=== PATIENT | male | born 1990 | race Caucasian/White ===

== ENCOUNTER → 2020-04-28 | Outpatient (CLI) | payer OTHER ==
--- NOTE | 2020-04-28 14:26 | REP ---
INDICATION: ELEVATED TSH PAIN INTERIOR THYROID GLAND COMPARISON: None. TECHNIQUE: Cardoso scale and color evaluation of the thyroid gland using the linear high frequency transducer. FINDINGS: The thyroid gland is normal in contour, shape, size, and echogenicity. No nodule/mass or cystic abnormalities are appreciated. Right thyroid lobe measures 3.3 x 1.3 x 1.4 cm. Isthmus measures 3.5 mm in width. Left thyroid lobe measures 3.4 x 1.5 x 1.3 cm. IMPRESSION: Normal thyroid ultrasound. <Electronically signed by Xavier Mg > 04/28/20 [id number]
== END ==
LOC: M RAD 13:09
PROVIDERS: ATTEND Physician Assistant
DX: R07.0 Pain in throat (principal)

== ENCOUNTER → 2021-03-25 | Outpatient (CLI) | payer OTHER ==
--- NOTE | 2021-03-25 14:33 | REPVR ---
PROCEDURE INFORMATION: Exam: MR Cervical Spine Without Contrast Exam date and time: 03/25/2021 10:54 AM Age: 30 years old Clinical indication: Pain; Cervicalgia; Additional info: Back pain TECHNIQUE: Imaging protocol: Multiplanar magnetic resonance images of the cervical spine without contrast. COMPARISON: Thyroid, ST head+neck US 04/28/2020 1:22 PM FINDINGS: Vertebrae: Unremarkable. Spinal cord: Normal signal. No cord compression. C2-C3: No significant disc disease. No significant spinal stenosis. C3-C4: No significant disc disease. No significant spinal stenosis. C4-C5: No significant disc disease. No significant spinal stenosis. C5-C6: There is a small central disc protrusion. C6-C7: No significant disc disease. No significant spinal stenosis. C7-T1: No significant disc disease. No significant spinal stenosis. Soft tissues: Unremarkable. IMPRESSION: Small central disc herniation at C5/6. There is no significant spinal canal stenosis or cervical cord impression. Electronically signed by: Sharif Ayala On 03/25/2021 14:32:45 PM
--- NOTE | 2021-03-25 14:35 | REPVR ---
PROCEDURE INFORMATION: Exam: MR Thoracic Spine Without Contrast Exam date and time: 03/25/2021 10:54 AM Age: 30 years old Clinical indication: Pain in thoracic spine. TECHNIQUE: Imaging protocol: Multiplanar magnetic resonance images of the thoracic spine without contrast. COMPARISON: MRI-Spine,Cervical without con 03/25/2021 9:13 AM FINDINGS: Vertebrae: Unremarkable. Spinal cord: Normal signal. No cord compression. Discs/Spinal canal/Neural foramina: No significant disc disease. No significant spinal canal stenosis. Soft tissues: Unremarkable. IMPRESSION: Unremarkable spine. Electronically signed by: Sharif Ayala On 03/25/2021 14:35:20 PM
--- NOTE | 2021-03-25 14:38 | REPVR ---
PROCEDURE INFORMATION: Exam: MR Lumbar Spine Without Contrast Exam date and time: 03/25/2021 10:54 AM Age: 30 years old Clinical indication: Low back pain TECHNIQUE: Imaging protocol: Multiplanar magnetic resonance images of the lumbar spine without intravenous contrast. COMPARISON: MRI-Spine,Thoracic without con 03/25/2021 9:37 AM FINDINGS: Vertebrae: Unremarkable. Spinal cord: Normal signal. No cord compression. L1-L2: No significant disc disease. No significant spinal canal stenosis. No neural foraminal stenosis. L2-L3: No significant disc disease. No significant spinal canal stenosis. No neural foraminal stenosis. L3-L4: No significant disc disease. No significant spinal canal stenosis. No neural foraminal stenosis. L4-L5: No significant disc disease. No significant spinal canal stenosis. No neural foraminal stenosis. L5-S1: There is disc space narrowing and desiccation. There are moderate degenerative end plate changes at this level. There is a moderate disc bulge with a small superimposed central disc herniation. Disc bulging extends into both neural foramen causing mild bilateral neural foraminal narrowing. Soft tissues: Unremarkable. IMPRESSION: Moderate degenerative disc changes at L5/S1. Please see details above. Electronically signed by: Sharif Ayala On 03/25/2021 14:37:33 PM
== END ==
LOC: M RAD 08:52
PROVIDERS: ATTEND Physician Assistant
DX: M51.16 Intervertebral disc disorders with radiculopathy, lumbar region (principal)

== ENCOUNTER 2021-07-10 20:27 | Observation (INO) | payer OTHER ==
[~2021-07-10] VITALS: Ht 175.3 cm; Wt 78.2 kg
[2021-07-10] MEDS ORDERED: NS 1,000 ML IV ONE ×3 (21:00→23:50)
[2021-07-10] MEDS ORDERED: VALA500T5 (21:06)
[2021-07-10] MEDS ORDERED: FLUO20CA22 (21:06)
[2021-07-10] MEDS ORDERED: SPIR100T3 (21:06)
[2021-07-10] MEDS ORDERED: PROG1CAP9 (21:06)
[2021-07-10] MEDS ORDERED: PRAZ1CAP (21:06)
[2021-07-10] MEDS ORDERED: FENO48TA8 (21:06)
[2021-07-10] MEDS ORDERED: ESTR2TAB3 (21:06)
[2021-07-10 21:35] LABS: AMPHETAMINES LEVEL URINE NEGATIVE (NEGATIVE); BARBITURATES URINE NEGATIVE (NEGATIVE); BASO # 0.1 10^3/uL (0.0-0.2); BASO % 0.8 % (0.0-1.0); BENZODIAZEPINES URINE NEGATIVE (NEGATIVE); CANNABINOIDS URINE POSITIVE (NEGATIVE); COCAINE METABOLITE URINE NEGATIVE (NEGATIVE); EOS # 0.1 10^3/uL (0.0-0.5); EOS % 1.1 % (0.0-3.0); HEMATOCRIT 43.2 % (36.0-47.0); HEMOGLOBIN 14.6 g/dl (12.0-15.5); LYMPH # 3.7 10^3/uL (1.5-5.0); LYMPH % 35.3 % (24.0-44.0); MEAN CORPUSCULAR HEMOGLOBIN 30.9 pg (27.0-33.0); MEAN CORPUSCULAR HGB CONC 33.8 g/dl (32.0-36.5); MEAN CORPUSCULAR VOLUME 91.5 fl (80.0-96.0); METHADONE URINE NEGATIVE (NEGATIVE); MONO # 0.7 10^3/uL (0.0-0.8); MONO % 6.8 % (2.0-8.0); NEUTROPHILS # 5.8 10^3/uL (1.5-8.5); NEUTROPHILS % 55.6 % (36.0-66.0); OPIATES URINE NEGATIVE (NEGATIVE); PHENCYCLIDINE URINE NEGATIVE (NEGATIVE); PLATELET COUNT, AUTOMATED 357 10^3/uL (150-450); RED BLOOD COUNT 4.72 10^6/uL (4.00-5.40); WHITE BLOOD COUNT 10.4 10^3/uL (4.0-10.0)
[2021-07-10 21:57] LABS: ALBUMIN 3.9 GM/DL (3.2-5.2); ALT/SGPT 30 U/L (12-78); BILIRUBIN,DIRECT < 0.1 MG/DL (0.0-0.2); BILIRUBIN,TOTAL 0.2 MG/DL (0.2-1.0); BLOOD UREA NITROGEN 13 MG/DL (7-18); CALCIUM LEVEL 9.2 MG/DL (8.5-10.1); CARBON DIOXIDE LEVEL 21 MEQ/L (21-32); CHLORIDE LEVEL 107 MEQ/L (98-107); GLOMERULAR FILTRATION RATE > 60.0 (>60); GLUCOSE, FASTING 141 MG/DL (70-100); POTASSIUM SERUM 3.6 MEQ/L (3.5-5.1); SALICYLATE LEVEL < 1.7 MG/DL (5.0-30.0); SODIUM LEVEL 140 MEQ/L (136-145); THYROID STIMULATING HORMONE 0.943 uIU/ML (0.358-3.740); TOTAL PROTEIN 7.7 GM/DL (6.4-8.2)
[2021-07-10 21:58] LABS: ACETAMINOPHEN LEVEL < 2.0 UG/ML (10.0-30.0); ETHYL ALCOHOL (ETHANOL) < 0.003 % (0.000-0.010)
[2021-07-10 22:01] LABS: RSV AMPLIFICATION NEGATIVE (NEGATIVE)
[2021-07-10 23:37] LABS: ABG BASE EXCESS -3.9 (-2.0-2.0); ABG HCO3 20.9 MEQ/L (22.0-26.0); ABG O2 SATURATION 95.8 % (95.0-99.0); ABG PARTIAL PRESSURE CO2 37.3 mmHg (35.0-45.0); ABG PARTIAL PRESSURE O2 83.1 mmHg (75.0-100.0); ABG STANDARD HCO3 21.2 MEQ/L (22.0-26.0); ABG pH (ARTERIAL) 7.366 UNITS (7.350-7.450)
[2021-07-11] MEDS ORDERED: NS 1,000 ML IV ONE (04:00)
[2021-07-11] MEDS ORDERED: EMTR1TAB16 PO (05:18)
[2021-07-11] MEDS ORDERED: ESTR2TAB3 PO (05:18)
[2021-07-11] MEDS ORDERED: PROG1CAP9 PO (05:18)
[2021-07-11] MEDS ORDERED: SPIR100T3 PO (05:18)
[2021-07-11] MEDS ORDERED: FENO48TA8 PO (05:18)
[2021-07-11] MEDS ORDERED: D3 S1CAP PO (05:18)
[2021-07-11] MEDS ORDERED: FLUO20CA22 PO (05:18)
[2021-07-11] MEDS ORDERED: PRAZ1CAP PO (05:18)
[2021-07-11] MEDS ORDERED: VALT500T PO (05:18)
[2021-07-11] MEDS ORDERED: HOME MED LIST COMPLETE! XX SCH (05:20)
[2021-07-11] MEDS ORDERED: PRAZOSIN 1 MG CAP PO PRN (05:50)
[2021-07-11] MEDS: NS 1,000 ML IV SCH ×2 (07:18→08:58)
[2021-07-11 08:18] VITALS: BP 111/70
[2021-07-11] MEDS ORDERED: FENOFIBRATE 48MG TABLET (TRICOR) PO SCH (09:00)
[2021-07-11] MEDS ORDERED: estradioL 1 MG TAB PO SCH (09:00)
[2021-07-11] MEDS ORDERED: FLUoxetine 20 MG CAP PO SCH (21:00)
[2021-07-11] MEDS ORDERED: TRUVADA 200MG/300MG TABLET PO SCH (21:00)
[2021-07-11] MEDS ORDERED: SPIRONOLACTONE 50 MG TAB PO SCH (21:00)
[2021-07-11] MEDS ORDERED: valACYclovir HCL 500 MG TAB PO SCH (21:00)
[2021-07-12] MEDS ORDERED: INFLUENZA QUADRIVALENT PF VACCINE 0.5ML SYRINGE IM SCH (09:00)
== END 2021-07-11 09:47 | disposition home or self-care (01) ==
LOC: M ED 20:27 → M ED INP 07-11 06:42
PROVIDERS: ADMIT Family Medicine; ATTEND Family Medicine
DX: G92.9 Unspecified toxic encephalopathy (principal); T40.711A Poisoning by cannabis, accidental (unintentional), initial encounter; E87.2 Acidosis; B00.9 Herpesviral infection, unspecified; F64.0 Transsexualism; E78.1 Pure hyperglyceridemia; F32.9 Major depressive disorder, single episode, unspecified; F43.10 Post-traumatic stress disorder, unspecified; F51.5 Nightmare disorder; Z79.899 Other long term (current) drug therapy; Z79.890 Hormone replacement therapy; Z98.84 Bariatric surgery status

== ENCOUNTER → 2021-12-06 | Outpatient (CLI) | payer OTHER ==
[~2021-12-06] MED LIST: D3 S1CAP PO; EMTR1TAB16 PO; ESTR2TAB3; ESTR2TAB3 PO; FENO48TA8; FENO48TA8 PO; FLUO20CA22; FLUO20CA22 PO; PRAZ1CAP; PRAZ1CAP PO; PROG1CAP9; PROG1CAP9 PO; SPIR100T3; SPIR100T3 PO; VALA500T5; VALT500T PO
== END ==
LOC: M PAIN 13:00
PROVIDERS: ATTEND Nurse Practitioner Family
DX: M51.16 Intervertebral disc disorders with radiculopathy, lumbar region (principal); F90.9 Attention-deficit hyperactivity disorder, unspecified type; Z98.84 Bariatric surgery status; F43.10 Post-traumatic stress disorder, unspecified; F32.9 Major depressive disorder, single episode, unspecified; M54.2 Cervicalgia; F64.9 Gender identity disorder, unspecified; Z79.899 Other long term (current) drug therapy; Z87.891 Personal history of nicotine dependence

== ENCOUNTER 2022-03-02 00:24 | Emergency (ER) | payer OTHER ==
[~2022-03-02] VITALS: Ht 175.3 cm; Wt 77.7 kg
[2022-03-02] MEDS ORDERED: ACETAMINOPHEN 325 MG TAB PO ONE (06:45)
[2022-03-02 07:00] LABS: APPEARANCE, URINE MANUAL CLEAR (CLEAR); COLOR, URINE MANUAL YELLOW (YELLOW); PROTEIN, URINE MANUAL NEGATIVE (NEGATIVE); SPECIFIC GRAVITY,URINE MANUAL 1.024 (1.002-1.035)
[2022-03-02 07:01] LABS: BILIRUBIN, URINE MANUAL 1+ (NEGATIVE); BLOOD URINE MANUAL NEGATIVE (NEGATIVE); GLUCOSE, URINE (UA) MANUAL NEGATIVE (NEGATIVE); KETONE, URINE MANUAL 1+ mg/dL (NEGATIVE); LEUKOCYTE ESTERASE, URINE MAN NEGATIVE (NEGATIVE); NITRITE, URINE MANUAL NEGATIVE (NEGATIVE); UROBILINOGEN, URINE MANUAL 8 MG mg/dl (NORMAL)
[2022-03-02 07:55] LABS: RSV AMPLIFICATION NEGATIVE (NEGATIVE)
[2022-03-02 08:25] VITALS: BP 114/60
== END 2022-03-02 08:31 | disposition home or self-care (01) ==
LOC: EDSEX 00:24 → M ED 00:24
DX: U07.1 COVID-19 (principal); M54.50 Low back pain, unspecified; J45.909 Unspecified asthma, uncomplicated; F32.A Depression, unspecified; F41.9 Anxiety disorder, unspecified; F43.10 Post-traumatic stress disorder, unspecified; Z98.84 Bariatric surgery status; Z79.899 Other long term (current) drug therapy; Z79.890 Hormone replacement therapy; F17.200 Nicotine dependence, unspecified, uncomplicated

== ENCOUNTER → 2022-05-14 | Outpatient (CLI) | payer OTHER | LOC: M LABSMTC 11:09 | PROVIDERS: ATTEND Anesthesiology | DX: Z01.812 Encounter for preprocedural laboratory examination (principal); Z11.52 Encounter for screening for COVID-19 ==

== ENCOUNTER → 2022-10-18 | Outpatient (CLI) | payer OTHER | LOC: M PLARAD 13:06 → EDSEX 13:30 | PROVIDERS: ATTEND Physician Assistant | DX: M51.86 Other intervertebral disc disorders, lumbar region (principal) ==

== ENCOUNTER → 2022-10-22 | Outpatient (CLI) | payer OTHER | LOC: M PAIN 14:45 | PROVIDERS: ATTEND Nurse Practitioner Family | DX: M51.16 Intervertebral disc disorders with radiculopathy, lumbar region (principal); M54.2 Cervicalgia; Z87.891 Personal history of nicotine dependence; Z79.899 Other long term (current) drug therapy ==

== ENCOUNTER → 2022-11-14 | Outpatient (CLI) | payer OTHER | LOC: M PAIN 09:45 | PROVIDERS: ATTEND Nurse Practitioner Family | DX: M46.1 Sacroiliitis, not elsewhere classified (principal); M54.6 Pain in thoracic spine; F90.9 Attention-deficit hyperactivity disorder, unspecified type; Z98.84 Bariatric surgery status; F64.9 Gender identity disorder, unspecified; F43.10 Post-traumatic stress disorder, unspecified; F32.9 Major depressive disorder, single episode, unspecified; M54.2 Cervicalgia; M54.50 Low back pain, unspecified; Z79.899 Other long term (current) drug therapy; Z88.8 Allergy status to other drugs, medicaments and biological substances; Z87.891 Personal history of nicotine dependence ==

== ENCOUNTER 2023-08-01 07:56 | Day surgery (SDC) | payer OTHER ==
[~2023-08-01] VITALS: Ht 175.3 cm; Wt 51.5 kg
[~2023-08-01 07:56] MED LIST changes: +AMPH1CAP4 PO; +BARI1CAP PO; +GABA-1171 PO; +LIDOCAINE 2% 100MG/5ML SDV (FOR ANES.) As Ordered ONE; +NS 1,000 ML IV ONE; +OMEP-173 PO; +fentaNYL 100 MCG/2 ML INJECTION As Ordered ONE; +propofoL 500 MG/50 ML VIAL As Ordered ONE
[2023-08-01] MEDS ORDERED: ONDANSETRON 4MG 2ML VIAL As Ordered ONE (09:29)
[2023-08-01] MEDS ORDERED: PHENYLephrine 500MCG 5ML (100MCG/ML) SYRINGE As Ordered ONE (09:35)
[2023-08-01 09:46] VITALS: TEMP 96.8
[2023-08-01 10:05] VITALS: BP 116/68; O2SAT 98
== END 2023-08-01 10:31 | disposition home or self-care (01) ==
LOC: M OPP 07:56
PROVIDERS: ATTEND Internal Medicine Gastroenterology
DX: Z12.11 Encounter for screening for malignant neoplasm of colon (principal); Z80.0 Family history of malignant neoplasm of digestive organs; K64.4 Residual hemorrhoidal skin tags; K64.8 Other hemorrhoids; K22.70 Barrett's esophagus without dysplasia; Z98.0 Intestinal bypass and anastomosis status; Z87.891 Personal history of nicotine dependence; G47.30 Sleep apnea, unspecified; Z99.89 Dependence on other enabling machines and devices; Z79.2 Long term (current) use of antibiotics; Z79.818 Long term (current) use of other agents affecting estrogen receptors and estrogen levels; Z79.891 Long term (current) use of opiate analgesic; Z79.899 Other long term (current) drug therapy
CPT/HCPCS: 43239; 45378; 88305; J2371; J2405; J3010

== ENCOUNTER → 2023-08-06 | Outpatient (RCR) | payer OTHER ==
[~2023-08-06] MED LIST changes: -LIDOCAINE 2% 100MG/5ML SDV (FOR ANES.) As Ordered ONE; -NS 1,000 ML IV ONE; -fentaNYL 100 MCG/2 ML INJECTION As Ordered ONE; -propofoL 500 MG/50 ML VIAL As Ordered ONE
== END ==
LOC: M PT 13:45
PROVIDERS: ATTEND Physician Assistant
DX: M51.86 Other intervertebral disc disorders, lumbar region (principal); R26.9 Unspecified abnormalities of gait and mobility; M50.122 Cervical disc disorder at C5-C6 level with radiculopathy